=== PATIENT | male | born 2000 | race Caucasian/White ===

== ENCOUNTER 2020-05-03 18:40 | Emergency (ER) | payer SELFPAY ==
[2020-05-03] MEDS ORDERED: Ondansetron ODT 4 MG TAB ONE (18:59)
[2020-05-03] MEDS ORDERED: HYDROcodone/Acetaminophen 10/325 mg Tablet ONE (18:59)
== END 2020-05-03 19:06 | disposition home or self-care (01) ==
LOC: ERS 18:40
DX: K02.9 Dental caries, unspecified (principal)
CPT/HCPCS: 99282; Q0162

== ENCOUNTER 2022-07-14 22:43 | Emergency (ER) | payer SELFPAY | END 2022-07-15 01:28 | disposition left against medical advice (07) | LOC: ERS 22:43 | DX: Z53.21 Procedure and treatment not carried out due to patient leaving prior to being seen by health care provider (principal) ==

== ENCOUNTER 2024-07-22 03:36 | Emergency (ER) | payer SELFPAY ==
[2024-07-22] MEDS ORDERED: Bupivacaine 0.25% 10 ML VIAL ONE (03:47)
[2024-07-22] MEDS ORDERED: Lidocaine Viscous Sol 2% 15 ml UD Cup ONE (03:49)
[2024-07-22] MEDS ORDERED: Penicillin V Potassium 250 MG TAB PO SCH (04:30)
== END 2024-07-22 04:41 | disposition home or self-care (01) ==
LOC: ERS 03:36
DX: K04.7 Periapical abscess without sinus (principal); F17.290 Nicotine dependence, other tobacco product, uncomplicated
CPT/HCPCS: 64400; J0665